=== PATIENT | female | born 1970 | race Caucasian/White ===

== ENCOUNTER 2016-04-21 09:16 | Emergency (ER) | payer BC ==
[~2016-04-21] VITALS: Ht 167.6 cm; Wt 80.2 kg
[~2016-04-21 09:16] MED LIST: ALEN70TA2 PO; ARM1 PO; CALCTAB5 PO; CHOL100027 PO; MULT-506 PO; ZLDI SQ
[2016-04-21 09:18] VITALS: TEMP 36.6; Ht 167.6 cm; Wt 80.2 kg
[2016-04-21] MEDS ORDERED: SODIUM CHLORIDE 0.9% 1000ML 1,000 ML IV STA (09:33)
[2016-04-21] MEDS ORDERED: ONDANSETRON INJ 2 MG/ML 2 ML VIAL IV STA (09:33)
[2016-04-21] MEDS ORDERED: KETOROLAC TROMETHAMINE 30 MG/ML VIAL IV STA (09:33)
--- NOTE | 2016-04-21 09:41 | EMERGENCY ROOM VISIT NOTE ---
History Report prepared by Joy: Rosario Leger Under the Supervision of: Dr. David Marie D.O. First contact with patient: 09:28 Chief Complaint: BACK PAIN Stated Complaint: SEVERE BACK PAIN History of Present Illness The patient is a 45 year old female who presents to the Emergency Room with complaints of persistent left, upper back pain that began Wednesday. She currently rates her discomfort as an 8/10 in severity. The patient states that on Wednesday she lifted a grocery bag out of her cart and injured her back. She states that the pain is localized to one area, and denies it radiating to any other part of her body or any shooting pain. The patient denies any numbness, tingling, or weakness in her legs. She denies any previous back problems and denies seeing anyone for her symptoms. The patient denies any abdominal pain, groin pain, groin numbness, or trouble urinating. She states that she tried taking Aleve and Advil without relief of her symptoms, noting that her last dose was last evening. The patient states that she has a history of breast cancer in 2009 and denies the cancer spreading to any other parts of her body. She states that she had a mastectomy. The patient states that she is premenopausal and denies any history of a hysterectomy. She denies any tobacco use, but notes that she is an occasional drinker. Source of History: patient Onset: Wednesday Position: back (left upper) Symptom Intensity: 8/10 Timing: other (persistent) Associated Symptoms: No abdominal pain, No numbness, No weakness Review of Systems See HPI for pertinent positives & negatives. A total of 10 systems reviewed and were otherwise negative. Past Medical & Surgical Medical Problems: (1) Breast cancer Family History No pertinent family history stated. Social History Smoking Status: Never Smoker Marital Status: Housing Status: lives with significant other Occupation Status: employed Current/Historical Medications Scheduled Alendronate Sodium (Fosamax), 70 MG PO WK Anastrozole (Anastrozole), 1 MG PO DAILY Calcium Carbonate (Calcium), 600 MG PO BID Cholecalciferol (Vitamin D 1000 Unit), 2,000 INTER.UNIT PO DAILY Goserelin Acetate (Zoladex), 10.8 MG SQ Q90D Multivitamin (Multivitamin), 1 TAB PO DAILY Scheduled PRN Oxycodone Immediate Rel Tab (Roxicodone Ir), 1-2 TAB PO Q4H PRN for Severe Pain Allergies Coded Allergies: No Known Allergies (Verified , 04/21/16) Physical Exam Vital Signs Date Time Temp Pulse Resp B/P Pulse Ox O2 Delivery O2 Flow Rate FiO2 04/21/16 12:02 52 16 114/69 97 Room Air 04/21/16 11:19 52 18 131/61 95 Room Air 04/21/16 10:03 58 20 138/69 96 Room Air 04/21/16 09:18 36.6 78 20 115/70 99 Room Air Physical Exam GENERAL: Patient is awake, alert, very anxious appearing, appears to be uncomfortable and in significant pain. EYES: The conjunctivae are clear. The pupils are round and reactive. EARS, NOSE, MOUTH AND THROAT: The nose is without any evidence of any deformity. Mucous membranes are moist tongue is midline NECK: The neck is nontender and supple. RESPIRATORY: Normal respiratory effort is noted there is no evidence of wheezing rhonchi or rales CARDIOVASCULAR: Regular rate and rhythm noted there no murmurs rubs or gallops normal S1 normal S2 GASTROINTESTINAL: The abdomen is soft. Bowel sounds are present in all quadrants. Abdomen is nontender BACK: No midline tenderness, but very significant perivertebral tenderness, especially in the lower thoracic and upper lumbar spine. Range of motion is limited secondary to pain. MUSCULOSKELETAL/EXTREMITIES: There is no evidence of gross deformity full range of motion is noted in the hips and shoulders SKIN: There is no obvious evidence of any rash. There are no petechiae, pallor or cyanosis noted. NEUROLOGIC: Patient is awake alert and oriented x3 strength is symmetric patellar reflexes are 2+ bilaterally. Achilles tendon reflexes 1+ bilaterally and great toe raises are symmetric. Medical Decision & Procedures ER Provider Diagnostic Interpretation: X-ray results as stated below per interpretation by me and the radiologist. THORACIC SPINE 3 VIEWS HISTORY: Back pain left back pain COMPARISON: None. FINDINGS: There is no fracture. Mild that should scoliosis. Mild degenerative disc changes throughout. No acute compression deformity. IMPRESSION: Mild scoliosis. Mild degenerative intervertebral disc change. Electronically signed by: Karlo Caballero M.D. 04/21/2016 10:53 AM Dictated Date/Time: 04/21/2016 10:49 AM LUMBAR SPINE 5 VIEWS HISTORY: Pain left back pain COMPARISON: None. FINDINGS: There is no fracture. Moderate degenerative disc change. Degenerative change of vertebral endplates. No evidence for an acute compression deformity. IMPRESSION: Moderate degenerative change. Electronically signed by: Karlo Caballero M.D. 04/21/2016 10:49 AM Dictated Date/Time: 04/21/2016 10:48 AM Laboratory Results 04/21/16 09:55 Red Blood Count 4.63, Mean Corpuscular Volume 87.3, Mean Corpuscular Hemoglobin 29.4, Mean Corpuscular Hemoglobin Concent 33.7, Mean Platelet Volume 10.3, Neutrophils (%) (Auto) 59.3, Lymphocytes (%) (Auto) 32.5, Monocytes (%) (Auto) 4.1, Eosinophils (%) (Auto) 3.4, Basophils (%) (Auto) 0.5, Neutrophils # (Auto) 3.37, Lymphocytes # (Auto) 1.84, Monocytes # (Auto) 0.23, Eosinophils # (Auto) 0.19, Basophils # (Auto) 0.03 04/21/16 09:55 Test 04/21/16 09:55 04/21/16 11:18 White Blood Count 5.67 K/uL (4.8-10.8) Red Blood Count 4.63 M/uL (4.2-5.4) Hemoglobin 13.6 g/dL (12.0-16.0) Hematocrit 40.4 % (37-47) Mean Corpuscular Volume 87.3 fL (80-100) Mean Corpuscular Hemoglobin 29.4 pg (25-34) Mean Corpuscular Hemoglobin Concent 33.7 g/dl (32-36) Platelet Count 300 K/uL (130-400) Mean Platelet Volume 10.3 fL (7.4-10.4) Neutrophils (%) (Auto) 59.3 % Lymphocytes (%) (Auto) 32.5 % Monocytes (%) (Auto) 4.1 % Eosinophils (%) (Auto) 3.4 % Basophils (%) (Auto) 0.5 % Neutrophils # (Auto) 3.37 K/uL (1.4-6.5) Lymphocytes # (Auto) 1.84 K/uL (1.2-3.4) Monocytes # (Auto) 0.23 K/uL (0.11-0.59) Eosinophils # (Auto) 0.19 K/uL (0-0.5) Basophils # (Auto) 0.03 K/uL (0-0.2) RDW Standard Deviation 43.3 fL (36.4-46.3) RDW Coefficient of Variation 13.6 % (11.5-14.5) Immature Granulocyte % (Auto) 0.2 % Immature Granulocyte # (Auto) 0.01 K/uL (0.00-0.02) Anion Gap 9.0 mmol/L (3-11) Est Creatinine Clear Calc Drug Dose 113.7 ml/min Estimated GFR () 122.8 Estimated GFR (Non- 105.9 BUN/Creatinine Ratio 20.3 (10-20) Calcium Level 9.2 mg/dl (8.5-10.1) Total Bilirubin 0.7 mg/dl (0.2-1) Direct Bilirubin 0.1 mg/dl (0-0.2) Aspartate Amino Transf (AST/SGOT) 12 U/L (15-37) Alanine Aminotransferase (ALT/SGPT) 25 U/L (12-78) Alkaline Phosphatase 88 U/L (45-117) Total Protein 7.5 gm/dl (6.4-8.2) Albumin 3.6 gm/dl (3.4-5.0) Lipase 98 U/L (73-393) Human Chorionic Gonadotropin, Qual NEG (NEG) Urine Color YELLOW Urine Appearance CLEAR (CLEAR) Urine pH 7.0 (4.5-7.5) Urine Specific [place] 1.004 (1.000-1.030) Urine Protein NEG (NEG) Urine Glucose (UA) NEG (NEG) Urine Ketones NEG (NEG) Urine Occult Blood NEG (NEG) Urine Nitrite NEG (NEG) Urine Bilirubin NEG (NEG) Urine Urobilinogen NEG (NEG) Urine Leukocyte Esterase MODERATE (NEG) Urine WBC (Auto) 1-5 /hpf (0-5) Urine RBC (Auto) 0-4 /hpf (0-4) Urine Hyaline Casts (Auto) 0 /lpf (0-5) Urine Epithelial Cells (Auto) 5-10 /lpf (0-5) Urine Bacteria (Auto) NEG (NEG) Laboratory results per my review. Medications Administered Medications (Trade) Dose Ordered Sig/Raj Route Start Time Stop Time Status Last Admin Dose Admin Ketorolac Tromethamine 30 mg 30 mg NOW STAT IV 04/21/16 09:33 04/21/16 09:36 DC 04/21/16 09:58 30 MG Sodium Chloride (Nss 1000ml) 1,000 ml @ 999 mls/hr Q1H1M STAT IV 04/21/16 09:33 04/21/16 10:33 DC 04/21/16 09:56 999 MLS/HR Ondansetron HCl (Zofran Inj) 4 mg NOW STAT IV 04/21/16 09:33 04/21/16 09:36 DC 04/21/16 09:57 4 MG Morphine Sulfate (MoRPHine SULFATE INJ) 4 mg Q15M PRN IV 04/21/16 09:45 04/21/16 12:25 DC 04/21/16 11:24 4 MG ED Course 0930: The patient was evaluated in room C1B. A complete history and physical examination were performed. 0933: Ordered Zofran Inj 4 mg IV, Sodium Chloride 1000 ml @ 999 mls/hr IV, Toradol Inj 30 mg IV. 0945: Ordered Morphine Sulfate 4 mg IV. 1012: I reevaluated the patient and she was at x-ray. 1115: I reevaluated the patient and she is doing well. 1156: I reevaluated the patient and she is resting comfortably. I discussed the exam findings with her and I discussed the treatment plan. She verbalized complete understanding and agreement. She is ready to go home. Medical Decision Differential diagnosis: Etiologies such as musculoskeletal, disc herniation, fracture, aortic disease, metastatic disease, cord compression, discitis, infection, renal colic, gastrointestinal, acute exacerbation of chronic back pain, sciatica, cauda equina, as well as others were entertained. Nursing notes reviewed. The patient is a 45-year-old female who presented to the emergency department for an evaluation of left-sided back pain. The back pain appeared to be musculoskeletal in nature. It was reproducible. She states it was worsened after doing some heavy lifting. The patient did not have any focal neurologic deficit. She does have a history of breast cancer in the past which to her knowledge has not had any metastasis. The patient's x-rays did not reveal any acute bony abnormality but did show some degenerative changes. She was treated with IV fluids IV pain medicine IV antiemetics. On subsequent reevaluation she was feeling much better. She was encouraged to rest and avoid any strenuous activity. She was also encouraged to call her family doctor to schedule a follow -up appointment. I also recommended that she discuss the possibility that she may require an MRI of her back if symptoms do not improve or if other symptoms develop which could be radicular in nature. Otherwise she was encouraged to return the emergency Department immediately if symptoms change worsen or the need arises. Impression Primary Impression: Low back pain Scribe Attestation The scribe's documentation has been prepared under my direction and personally reviewed by me in its entirety. I confirm that the note above accurately reflects all work, treatment, procedures, and medical decision making performed by me. Departure Information Dispostion Home / Self-Care Prescriptions Oxycodone Immediate Rel Tab (ROXICODONE IR) 5 Mg Tab 1-2 TAB PO Q4H Y for Severe Pain, #24 TAB Prov: David Marie, DO 04/21/16 Referrals Tamar Faust,D.OJustin (PCP) Forms HOME CARE DOCUMENTATION FORM, IMPORTANT VISIT INFORMATION, Work Instructions Patient Instructions Back Pain Relieve, Low Back Pain Self Care, My [facility] Additional Instructions Call your family to schedule a follow-up appointment. Rest and avoid any strenuous activity. Discussed the possibility with your family the may require other studies such as an MRI the back to further evaluate the cause of your pain. Continue using Motrin and Tylenol as directed for mild pain. Problem Qualifiers Primary Impression: Low back pain Chronicity: acute Back pain laterality: left Sciatica presence: without sciatica Qualified Codes: M54.5 - Low back pain
[2016-04-21] MEDS ORDERED: MoRPHine SULFATE 4 MG/ML 1 ML CARP\\VIAL IV PRN (09:45)
[2016-04-21] MEDS ORDERED: ARM1 PO (09:54)
[2016-04-21] MEDS ORDERED: CALC-393 PO (09:54)
[2016-04-21 10:02] LABS: BASO % 0.5 %; BASO ABS # 0.03 K/uL (0-0.2); COMPLETE YES; EOS % 3.4 %; HEMATOCRIT 40.4 % (37-47); IG% 0.2 %; LYMPH % 32.5 %; LYMPH ABS # 1.84 K/uL (1.2-3.4); MEAN CELL VOLUME 87.3 fL (80-100); MEAN CORPUSCULAR HEMOGLOBIN 29.4 pg (25-34); MEAN CORPUSCULAR HGB CONC 33.7 g/dl (32-36); MEAN PLATELET VOLUME 10.3 fL (7.4-10.4); MONO % 4.1 %; NEUT % 59.3 %; PLATELET COUNT 300 K/uL (130-400); RED BLOOD COUNT 4.63 M/uL (4.2-5.4); WHITE BLOOD COUNT 5.67 K/uL (4.8-10.8)
[2016-04-21 10:19] LABS: BUN/CREATININE RATIO 20.3 (10-20); CALCIUM 9.2 mg/dl (8.5-10.1); CREATININE 0.66 mg/dl (0.60-1.20); POTASSIUM 4.3 mmol/L (3.5-5.1)
[2016-04-21 10:33] LABS: PREG INTERNAL NEGATIVE QC NEG CLEAR BACKGROUND; PREG INTERNAL POSITIVE QC POS CONTROL LINE
--- NOTE | 2016-04-21 10:50 | DIAGNOSTIC IMAGING REPORT ---
LUMBAR SPINE 5 VIEWS HISTORY: Pain left back pain COMPARISON: None. FINDINGS: There is no fracture. Moderate degenerative disc change. Degenerative change of vertebral endplates. No evidence for an acute compression deformity. IMPRESSION: Moderate degenerative change. Electronically signed by: Karlo Caballero M.D. 04/21/2016 10:49 AM Dictated Date/Time: 04/21/2016 10:48 AM
--- NOTE | 2016-04-21 10:54 | DIAGNOSTIC IMAGING REPORT ---
THORACIC SPINE 3 VIEWS HISTORY: Back pain left back pain COMPARISON: None. FINDINGS: There is no fracture. Mild that should scoliosis. Mild degenerative disc changes throughout. No acute compression deformity. IMPRESSION: Mild scoliosis. Mild degenerative intervertebral disc change. Electronically signed by: Karlo Caballero M.D. 04/21/2016 10:53 AM Dictated Date/Time: 04/21/2016 10:49 AM
[2016-04-21 11:45] LABS: MANUAL MICROSCOPIC REQUIRED? NO; REVIEW REQ? NO; URINE APPEARANCE CLEAR (CLEAR); URINE BILIRUBIN NEG (NEG); URINE COLOR YELLOW; URINE NITRITE NEG (NEG); URINE SPECIFIC GRAVITY 1.004 (1.000-1.030); UROBILINOGEN NEG (NEG)
[2016-04-21] MEDS ORDERED: OXYC1TAB3 PO (11:53)
[2016-04-21 12:02] VITALS: BP 114/69; PULSE 52; O2SAT 97
== END 2016-04-21 12:16 | disposition home or self-care (01) ==
LOC: C.EDB 09:18 → C.EDC 12:16
DX: M54.5 Low back pain (principal); Z85.3 Personal history of malignant neoplasm of breast; Z79.899 Other long term (current) drug therapy

== ENCOUNTER 2025-01-19 00:03 | Observation (INO) ==
[2025-01-19] MEDS: FAMOTIDINE 20MG IV PUSH 20 MG/5 ML SYR IV STA (00:43)
[2025-01-19] MEDS: ONDANSETRON INJ 2 MG/ML 2 ML VIAL IV STA (00:43)
[2025-01-19] MEDS: SODIUM CHLORIDE 0.9% 1,000 ML IV SCH (00:43)
[2025-01-19 00:52] LABS: Hematocrit (blood only) 43.2 % (37.0-47.0); Hemoglobin 14.2 g/dL (12.0-16.0); Immature Granulocytes # (auto) 0.02 K/uL (0.01-0.20); Immature Granulocytes % (auto) 0.2 %; Mean Corpuscular Hemoglobin 28.3 pg (25.0-34.0); Mean Corpuscular Volume 86.2 fL (80.0-100.0); Platelet Count 344 K/uL (130-400); RDW Standard Deviation 42.2 fL (36.4-46.3); Red Blood Count 5.01 M/uL (4.20-5.40); White Blood Count 9.04 K/ul (4.8-10.8)
[2025-01-19 01:10] LABS: Alanine Aminotransferase 21.0 U/L (7-52); Albumin Globulin Ratio 1.2 (0.9-2); Albumin Level 4.1 gm/dl (3.4-5.0); Alkaline Phosphatase 83.0 U/L (34-104); Anion Gap 6.0 (3-11); Bilirubin,Total 0.5 mg/dl (0.2-1.0); Blood Urea Nitrogen 19.0 mg/dl (6-23); Calcium 9.8 mg/dl (8.6-10.3); Carbon Dioxide 29.0 mmol/L (21-32); Chloride 103.0 mmol/L (98-107); Creatinine Clr Calc Pharmacy 85.8 ml/min; Globulin 3.3 gm/dl (2.5-4.0); Glucose 128.0 mg/dl (70-99(Fasting)); Magnesium 2.1 mg/dl (1.7-2.4); Potassium 3.8 mmol/L (3.5-5.1); Sodium 138.0 mmol/L (136-145); Total Protein 7.4 gm/dl (6.0-8.3)
[2025-01-19] MEDS ORDERED: OPTIRAY 320 100ml IV ONE (01:10)
[2025-01-19] MEDS: MoRPHine SULFATE 4 MG/ML 1 ML CARP\\VIAL IV STA (01:10)
[2025-01-19] MEDS: OPTIRAY 320 125ml IV ONE (01:11)
[2025-01-19 01:15] LABS: Pregnancy Test, Serum Negative (Negative)
--- NOTE | 2025-01-19 01:19 | Emergency Department Note ---
History of Present Illness General Chief complaint: Abdominal Pain Stated complaint: ABD PAIN IN UPPER AREA Time Seen by Provider: 01/19/25 00:19 History of Present Illness Maximum Pain Intensity: 6 This 54-year-old female who has been underneath a lot of stress lately presents to the ER complain of severe epigastric pain that radiates bilaterally who threw up twice in the second time seem like blood. Patient states she is healthy with no real active medical problems. She does have a distant history of breast cancer. Patient denies chest pain, dyspnea, fever, chills, flulike illness. No black or blood in the stool. No heavy alcohol use. Home Medications Medication Instructions Recorded Confirmed Type alendronate 70 mg tablet 70 mg PO UD 01/19/25 01/19/25 History Allergies Allergy/AdvReac Type Severity Reaction Status Date / Time No Known Allergies Allergy Verified 06/01/24 15:48 Past Med/Surg History Problem List (Updated 01/19/25 @ 02:29 by Tuyet Yanes PA-C) Mesenteric panniculitis (Acute) Hematemesis (Acute) Surgical History (Updated 04/26/23 @ 12:35 by Nisreen Holbrook MD) Hx of breast reconstruction S/P mastectomy, bilateral Family History (Updated 04/26/23 @ 08:53 by Nisreen Holbrook MD) Grandmother (Maternal) No problems noted. Grandmother (Paternal) Breast cancer Colorectal cancer Denies family history of Ovarian cancer Uterine cancer Social History (Updated 04/09/23 @ 15:32 by Yessi Cedeno LPN) Smoking Status: Never smoker Preferred Language: Mongolian Feels Safe at Home: Yes Review of Systems A total of 10 systems reviewed and were otherwise negative Physical Exam Vital Signs Vital Signs - 24 hr 01/19/25 00:13 01/19/25 00:32 01/19/25 00:42 Temperature 36.5 C Temperature Source Oral Pulse Rate 60 49 L Respiratory Rate 20 Respiratory Effort / Characteristics Non-Labored Spontaneous Respiratory Depth Normal Blood Pressure 139/81 Blood Pressure Mean 100 Pulse Oximetry 99 98 Oxygen Delivery Method Room Air Room Air Sepsis Recent Fever Within 48 Hours No Sepsis New/Unexplained Change in Mental Status No Sepsis Action Taken by Nursing No Action Required 01/19/25 00:45 01/19/25 01:12 Temperature Temperature Source Pulse Rate 49 L 62 Respiratory Rate 15 24 Respiratory Effort / Characteristics Respiratory Depth Blood Pressure 174/71 H 169/116 H Blood Pressure Mean 105 133 Pulse Oximetry 98 99 Oxygen Delivery Method Room Air Room Air Sepsis Recent Fever Within 48 Hours Sepsis New/Unexplained Change in Mental Status Sepsis Action Taken by Nursing VITALS: Vitals are noted on the nurse's note and reviewed by myself. Vital signs stable. GENERAL: White female who appears in pain who vomited in front me that appears to be blood that was Gastroccult of and is positive, in acute distress SKIN: Capillary reflex less than 2 seconds. HEENT: Normocephalic. PERRLA. EOMI. Nares patent. Mucous membranes moist. Neck is supple without nuchal rigidity. HEART: Regular rate and rhythm LUNGS: Clear to auscultation bilaterally without wheezes, rales or rhonchi. No retractions or accessory muscle use. ABDOMEN: Positive bowel sounds x 4. Normal tympanic percussion. Soft, tender to palpation epigastric region, without masses or organomegaly. Queen sign negative. No guarding or rebound tenderness. no CVA tenderness MUSCULOSKELETAL: No gross musculoskeletal defects. NEURO: Patient was alert and oriented to person place and time. No focal neurological deficits. Course Administered Medications Discontinued Medications Sodium Chloride (Nss) 1,000 mls @ 999 mls/hr IV .Q1H1M SURYA Stop: 01/19/25 01:45 Last Infusion: 01/19/25 01:57 Dose: Infused Documented By: Admin: 01/19/25 00:43 Dose: 999 mls/hr Documented By: MAYITO Famotidine (Pepcid 20mg Iv Push) 20 mg in 5 mls @ 2.5 mls/min IV NOW STA Stop: 01/19/25 00:32 Last Admin: 01/19/25 00:43 Dose: 2.5 mls/min Documented By: MAYITO Pantoprazole Sodium 80 mg/ (Dextrose) 120 mls @ 480 mls/hr IV ONE STA Stop: 01/19/25 00:45 Last Infusion: 01/19/25 01:00 Dose: Infused Documented By: Admin: 01/19/25 00:43 Dose: 480 mls/hr Documented By: MAYITO Ioversol (Optiray 320 125ml) 125 ml IV ONCE ONE Stop: 01/19/25 01:12 Last Admin: 01/19/25 01:11 Dose: 118 ml Documented By: MOISE Morphine Sulfate (Morphine Sulfate 4 Mg/Ml 1 Ml Carp\Vial) 4 mg IV NOW STA Stop: 01/19/25 00:56 Last Admin: 01/19/25 01:10 Dose: 4 mg Documented By: NANCY Ondansetron HCl (Ondansetron Inj 2 Mg/Ml 2 Ml Vial) 4 mg IV NOW STA Stop: 01/19/25 00:32 Last Admin: 01/19/25 00:43 Dose: 4 mg Documented By: MAYITO Medical Decision Making Medical Records Attestation: I reviewed the patient's medical records. Home Medications Current Medication List: was personally reviewed by me Laboratory Data Attestation: I reviewed the patient's lab results. 01/19/25 00:30 01/19/25 00:30 Lab Results 01/19/25 01/19/25 01/19/25 Range/Units 00:28 00:30 00:36 WBC 9.04 (4.8-10.8) K/ul RBC 5.01 (4.20-5.40) M/uL Hgb 14.2 (12.0-16.0) g/dL POC Hgb 14.6 (12.0-16.0) g/dl Hct 43.2 (37.0-47.0) % POC Hct 43 (37-47) % MCV 86.2 (80.0-100.0) fL MCH 28.3 (25.0-34.0) pg MCHC 32.9 (32.0-36.0) g/dL RDW Std Deviation 42.2 (36.4-46.3) fL RDW Coeff of Gladys 13.5 (11.5-14.5) % Plt Count 344 (130-400) K/uL MPV 10.2 (9.4-12.4) fL Immature Gran % (Auto) 0.2 % Neut % (Auto) 59.3 % Lymph % (Auto) 31.0 % Chaves % (Auto) 5.8 % Eos % (Auto) 3.1 % Baso % (Auto) 0.6 % Neut # (Auto) 5.37 (1.40-6.50) K/uL Lymph # (Auto) 2.80 (1.20-3.40) K/uL Chaves # (Auto) 0.52 (0.11-0.59) K/uL Eos # (Auto) 0.28 (0.00-0.50) K/uL Baso # (Auto) 0.05 (0.00-0.20) K/uL Immature Gran # (Auto) 0.02 (0.01-0.20) K/uL PT 10.7 (9.0-12.0) Seconds INR 1.0 (0.9-1.1) APTT 26 (21-31) Seconds PTT Ratio 1.0 POC Sodium 140 (135-144) mmol/L Sodium 138 (136-145) mmol/L POC Potassium 3.8 (3.3-5.0) mmol/L Potassium 3.8 (3.5-5.1) mmol/L POC Chloride 101 (101-112) mmol/L Chloride 103 (98-107) mmol/L Carbon Dioxide 29 (21-32) mmol/L POC Total CO2 28 (24-31) mmol/L Anion Gap 6 (3-11) POC Anion Gap 16.0 (16-25) mmol/L POC BUN 20 H (7-18) mg/dl BUN 19 (6-23) mg/dl Creatinine 0.80 (0.6-1.2) mg/dl POC Creatinine 0.9 (0.6-1.3) mg/dl Est Cr Clr Drug Dosing 85.8 ml/min eGFR 86.96 BUN/Creatinine Ratio 23.8 H (10-20) Glucose 128 H (70-99(Fasting)) mg/dl POC Glucose (other) 125 H (70-99) mg/dl Calcium 9.8 (8.6-10.3) mg/dl POC Ioniz Calcium Brian 1.20 (1.12-1.32) mmol/l Magnesium 2.1 (1.7-2.4) mg/dl Total Bilirubin 0.5 (0.2-1.0) mg/dl AST 17 (13-39) U/L ALT 21 (7-52) U/L Alkaline Phosphatase 83 (34-104) U/L Troponin I High Sens 2.7 (0-14) pg/ml Total Protein 7.4 (6.0-8.3) gm/dl Albumin 4.1 (3.4-5.0) gm/dl Globulin 3.3 (2.5-4.0) gm/dl Albumin/Globulin Ratio 1.2 (0.9-2) HCG, Qual Negative (Negative) Blood Type O Positive Antibody Screen NEGATIVE Imaging Data Attestation: I personally reviewed and interpreted this imaging study as follows: Radiologist's Impression: Abdomen/Pelvis CTA 01/19/25 00:31 EXAM: CT angio abdomen pelvis w con CLINICAL HISTORY: severe epi pain, hematemesis TECHNIQUE: Contrast enhanced thin slice CT angiography scan of the abdominal aorta was performed with intravenous contrast. Angiographic images were processed, 3D MIP images were acquired for interpretation. Contiguous axial images were obtained. Reformatted coronal and sagittal images were also reviewed. If IV contrast material had not been administered, the likelihood of detecting abnormalities relevant to the patient's condition would have been substantially decreased. CT scan was performed according to ALARA (as low as reasonably achievable). COMPARISON: None. FINDINGS: Abdominal aorta is normal in course, calibre and opacification. Origin of coeliac artery, superior mesenteric artery , bilateral main renal and lumbar arteries are normal with no hemodynamically significant ostial stenosis noted. Bilateral common, external and internal iliac arteries are normal in course, caliber and opacification. Solid abdominal organs including liver, spleen, pancreas and bilateral kidneys reveal no significant abnormality. Sliding hiatus hernia. Multiple lucent calculi noted involving gallbladder without cholecystitis. Multiple small uncomplicated sigmoid colonic diverticulosis No evidence of ascites. Mesenteric panniculitis in form of root of mesentery - mesenteric fat stranding and few reaactive lymphnodes. IMPRESSION: Uncomplicated cholelithiasis. Multiple small uncomplicated sigmoid colonic diverticulosis Sliding hiatus hernia noted. Abdominal aorta is normal in course, calibre and opacification. Origin of coeliac artery, superior mesenteric artery , bilateral main renal and lumbar arteries are normal with no hemodynamically significant ostial stenosis noted. Mesenteric panniculitis in form of mesenteric fat stranding and few reaactive lymphnodes. Electronically signed by Aubrey Tuttle 01-19-2025 01:50 AM Chest X-Ray 01/19/25 00:31 EXAM: XR chest 1V portable CLINICAL HISTORY: n/v. TECHNIQUE: An X-ray image of the chest is obtained in AP projection. COMPARISON: 01/18/2025 CT. FINDINGS: Pulmonary Parenchyma: The right lower lung lobe nodule is better seen on the lower cut of the CT angiography of the abdominal vessels. Subtle coarse pulmonary interstitium with bilateral basal atelectatic band. No evidence of consolidation, collapse, or focal opacities. No evidence of pleural effusion or pleural thickening. Heart and Mediastinum: Heart size and shape are normal. No mediastinal widening or masses. No hilar or mediastinal lymphadenopathy. Bony Thorax: Bony thorax appears intact without fractures or deformities. ECG leads. Soft Tissues: Soft tissues overlying the chest wall are unremarkable. left and to a lesser extent right few metallic clips, likely of metallic clips of an old intervention versus soft tissue calcification. IMPRESSION: 1. Subtle coarse pulmonary interstitium with a few bilateral basal atelectatic bands, stable. 2. The right lower lung lobe nodule is better seen on the lower cut of the CT angiography of the abdominal vessels. Electronically signed by Irvin Menjivar 01-19-2025 02:21 AM MDM Narrative Prior records/ancillary studies reviewed. Triage Nursing notes reviewed. Additional history obtained from the family. The patient's history was concerning for possible gastrointestinal bleeding. Differential diagnosis: Etiologies such as diverticulosis, AVM, coagulopathy, colitis, inflammatory bowel disease, malignancy, Kaye-Conley tear, esophagitis, peptic ulcer disease, variceal bleed, gastritis, epistaxis, fissure, hemorrhoids, as well as others were entertained. Physical exam: As above. The patients vital signs were stable. ER treatment provided: An order was placed for continuous cardiac monitoring. The monitor shows a rate of 60-100 with a sinus rhythm per my interpretation. Limited Point of Care FAST Ultrasound performed by me: Indication: Rule out perforation Findings: Limited cardiac ultrasonography via subxiphoid and parasternal long view showed cardiac wall motion activity, no pericardial fluid, no tamponade. Limited chest ultrasound revealed bilateral lung sliding. Limited abdominal ultrasound revealed no free fluid within Brower's pouch, splenorenal space, or the pouch of Guillermo. Impression: Negative FAST exam. Protonix, Pepcid, Zofran and morphine and IV fluids were ordered. I-STAT was ordered patient was sent down for CAT scan Patient was consented to blood if warranted. Blood consent was placed on the chart. On reassessment the patient felt better. Diagnostics interpreted by me: ECG: Ordered for GI bleed EKG: Normal sinus, normal intervals, no acute ST-T wave changes. Rate of 53. Impression sinus bradycardia independent interpreted myself The labs Independently Interpreted by myself revealed Stable H&H, no worrisome leukocytosis, glucose 128. Negative hCG. Imaging studies: Imaging was reviewed and read by radiology Consultation: A consultation was placed with the hospitalist. The case was discussed and diagnostics were reviewed. The patient was evaluated in the ER for further treatment. This appears to be consistent with hematemesis with mesenteric panniculitis. Patient has been under more stress lately. Most likely she has a stomach ulcer. No active bleeding on CAT scan. Patient was medicated as above. She was started on a PPI and Pepcid. She was given antinausea medicine and pain medicine. She was typed and crossmatch for blood if warranted. She was consented to blood if warranted. She was reassessed multiple times and improved. She was feeling better. Medicine was consulted case discussed. She will be evaluated for admission.. By the evaluation outlined above emergent etiologies such as esophageal perforation, variceal bleed, coagulopathy, epistaxis, malignancy, inflammatory bowel disease, as well as others were deemed relatively unlikely. The pt informed about the findings as listed above. All questions were answered and pleased with the treatment. The chart was completed utilizing [employer] Speech voice recognition software. Grammatical errors, random word insertions, pronoun errors, and incomplete sentences are an occassional consequence of this system due to software limitations, ambient noise, and hardware issues. Any formal questions or concerns about the content, text, or information contained within the body of this dictation should be directly addressed to the physician mobile unit assistant for clarification. Impression & Plan Hematemesis, Mesenteric panniculitis Discharge Plan Visit Data Chief Complaint: Abdominal Pain Stated Complaint: ABD PAIN IN UPPER AREA ED Provider: Marika Gama ED Midlevel Provider: Tuyet Yanes Discharge Problem: Hematemesis, Mesenteric panniculitis Patient Disposition: Admitted As Inpatient Condition: Fair Forms Stand Alone Forms: Home Team Therapy Prescriptions Prescriptions: No Action alendronate 70 mg tablet 70 mg PO UD Referrals Referrals: Tamar Faust DO [Primary Care Provider] - Discharge Problem: Hematemesis Qualifiers: Nausea presence: with nausea Qualified Code(s): K92.0 - Hematemesis
[2025-01-19 01:26] LABS: INR 1.0 (0.9-1.1); Partial Thromboplastin Time 26 Seconds (21-31); Prothrombin Time 10.7 Seconds (9.0-12.0)
--- NOTE | 2025-01-19 01:50 | CT Scan Report ---
EXAM: CT angio abdomen pelvis w con CLINICAL HISTORY: severe epi pain, hematemesis TECHNIQUE: Contrast enhanced thin slice CT angiography scan of the abdominal aorta was performed with intravenous contrast. Angiographic images were processed, 3D MIP images were acquired for interpretation. Contiguous axial images were obtained. Reformatted coronal and sagittal images were also reviewed. If IV contrast material had not been administered, the likelihood of detecting abnormalities relevant to the patient's condition would have been substantially decreased. CT scan was performed according to ALARA (as low as reasonably achievable). COMPARISON: None. FINDINGS: Abdominal aorta is normal in course, calibre and opacification. Origin of coeliac artery, superior mesenteric artery , bilateral main renal and lumbar arteries are normal with no hemodynamically significant ostial stenosis noted. Bilateral common, external and internal iliac arteries are normal in course, caliber and opacification. Solid abdominal organs including liver, spleen, pancreas and bilateral kidneys reveal no significant abnormality. Sliding hiatus hernia. Multiple lucent calculi noted involving gallbladder without cholecystitis. Multiple small uncomplicated sigmoid colonic diverticulosis No evidence of ascites. Mesenteric panniculitis in form of root of mesentery - mesenteric fat stranding and few reaactive lymphnodes. IMPRESSION: Uncomplicated cholelithiasis. Multiple small uncomplicated sigmoid colonic diverticulosis Sliding hiatus hernia noted. Abdominal aorta is normal in course, calibre and opacification. Origin of coeliac artery, superior mesenteric artery , bilateral main renal and lumbar arteries are normal with no hemodynamically significant ostial stenosis noted. Mesenteric panniculitis in form of mesenteric fat stranding and few reaactive lymphnodes. Electronically signed by Aubrey Tuttle 01-19-2025 01:50 AM
--- NOTE | 2025-01-19 02:22 | XRay Report ---
EXAM: XR chest 1V portable CLINICAL HISTORY: n/v. TECHNIQUE: An X-ray image of the chest is obtained in AP projection. COMPARISON: 01/18/2025 CT. FINDINGS: Pulmonary Parenchyma: The right lower lung lobe nodule is better seen on the lower cut of the CT angiography of the abdominal vessels. Subtle coarse pulmonary interstitium with bilateral basal atelectatic band. No evidence of consolidation, collapse, or focal opacities. No evidence of pleural effusion or pleural thickening. Heart and Mediastinum: Heart size and shape are normal. No mediastinal widening or masses. No hilar or mediastinal lymphadenopathy. Bony Thorax: Bony thorax appears intact without fractures or deformities. ECG leads. Soft Tissues: Soft tissues overlying the chest wall are unremarkable. left and to a lesser extent right few metallic clips, likely of metallic clips of an old intervention versus soft tissue calcification. IMPRESSION: 1. Subtle coarse pulmonary interstitium with a few bilateral basal atelectatic bands, stable. 2. The right lower lung lobe nodule is better seen on the lower cut of the CT angiography of the abdominal vessels. Electronically signed by Irvin Menjivar 01-19-2025 02:21 AM
--- NOTE | 2025-01-19 02:48 | History & Physical Report ---
Date of Service January 19, 2025 Assessment & Plan (1) Abdominal pain: (2) Mesenteric panniculitis: Plan 54-year-old female PMHx breast cancer in 2009 presenting for abdominal pain over the past few weeks with vomiting the day of arrival. Her evaluation is overall unremarkable with slightly increased BUN/creatinine versus 23.8 and glucose 128. CTA A/P revealing mesenteric panniculitis but no acute findings otherwise. #Abdominal pain/Mesenteric panniculitis/R/o GI bleed Abdominal pain for 3-4 weeks, vomiting day of arrival, coffee-ground emesis x 1. Increased stress surrounding her job around the same time her abdominal pain started. No NSAIDs, no prior episodes. Concerning for acid reflux with ? acute bleeding, however stable H/H, normal BUN. Panniculitis possibly secondary to vomiting, ? recent viral illness, should continue to monitor as appropriate. Admission for further management of pain and to evaluate source of symptoms. - CBC stable H&H and overall WNL; PT WNL; CMP normal BUN, BUN/creatinine ratio 20.8, glucose 128 - H/H, BMP am - Occult blood test (+) in ED - CTA A/P mesenteric panniculitis otherwise chronic and stable findings (see report) - NPO - IVF LR @ 80 mL/hr x 1L - Acetaminophen prn fever/pain, morphine prn severe pain - Pantoprazole IV BID + Famotidine IV - GI consulted - appreciate input + recs #OP- Alendronate - continue as outpatient, hold inpatient Dispo: Obs, med/tele VTE Prophylaxis: SCDs This document was dictated utilizing eVestment. Please excuse any grammatical errors that may be secondary to use of this software. Admission and Anticipated Discharge Date Admission Date: 01/19/2025 History of Present Illness Chief Complaint: Abdominal pain Primary Care Provider: Tamar Faust DO 54-year-old female PMHx breast cancer in 2009 presenting for abdominal pain over the past few weeks with vomiting the day of arrival. Reports 3-4 weeks of abdominal pain, coming and going in waves every 4-5 days. Reports taht the "episodes" occur at night, sometimes waking her from sleep. The pain worsens over the course of ~ 1.5 hours, then dissipates. She has had nausea, then the first episode of vomiting occurred the night of arrival x 4 times. The first episode of emesis was brown in nature, resembling coffee-grounds. The remaining episodes were clear fluid. No changes in bowel habits, no blood in stool. Pain is described as a dull, burning pain that is band like in the epigastric region. Does not radiate elsewhere. 8/10 at its worst, 0/10 at present. No chest pain, SOB, dizziness, or syncope. Denies palpitations, D/C, F/C, URI symptoms, LUTS, numbness/tingling, weakness, or falls. ED evaluation reveals normal CBC, PT/INR, and CMP with exception of BUN/creatinine ratio 23.8 glucose 128; negative; CTA A/P uncomplicated cholelithiasis, uncomplicated sigmoid colonic diverticulosis, sliding hiatal hernia, normal arteries and aorta, mesenteric panniculitis and mesenteric fat stranding; CXR subtle coarse pulmonary interstitium with few bilateral basal atelectatic bands that are stable, RLL nodule; EKG sinus bradycardia 53 bpm.; Provided with 1L NSS, pantoprazole 80 mg p.o., Zofran 4 mg IV, morphine 4 svitlana IV, 20 mg IV in ED. Please see Dr. Xiong's attestation for adjustments/additions to treatment plan. Allergies Allergy/AdvReac Type Severity Reaction Status Date / Time No Known Allergies Allergy Verified 06/01/24 15:48 Home Medications Medication Instructions Recorded Confirmed Type alendronate 70 mg tablet 70 mg PO WK 01/19/25 01/19/25 History pantoprazole 40 mg tablet,delayed See Rx Instructions .Route 01/19/25 Rx release .COMPLEX #70 tabs Past Med/Surg History Problem List Abdominal pain Mesenteric panniculitis (Acute) Hematemesis (Acute) Surgical History Hx of breast reconstruction S/P mastectomy, bilateral Family History Grandmother (Maternal) No problems noted. Grandmother (Paternal) Breast cancer Colorectal cancer Denies family history of Ovarian cancer Uterine cancer Social History Smoking Status: Never smoker Second Hand Exposure: No; Do You Dip or Chew Tobacco: No; Hx Alcohol Use: Yes Alcohol type: beer, wine and hard liquor Hx Substance Use: No Preferred Language: Kosovan Communication Ability: Effective Driller Multiple Spindle Required: No Beliefs That Will Affect Care: None Current Living Situation: Spouse Current Living Situation Comment: 1 story Feels Safe at Home: Yes Assistive Devices: None Review of Systems Review of Systems: All systems reviewed & are unremarkable except as noted in Subjective Physical Exam Physical Exam: General: No acute distress Skin: Warm and dry Head: Normocephalic, atraumatic Eyes: PERRL, conjunctivae clear, sclera non-icteric ENT: External ear and ear canal without swelling; nose atraumatic; good dentition, tongue normal appearance, pharynx normal Neck: Supple, no LAD Cardio: RRR, no M/G/R, S1 and S2 normal Resp: No respiratory distress, Lungs CTA in all lobes bilaterally, no wheezes, rales, or rhonchi Abdomen: Soft, symmetric, slight epigastric tenderness to palpation; No masses or hepatosplenomegaly; Bowel sounds normoactive MSK: No deformities; pulses palpable and equal; no edema. Neuro: Awake, alert; Sensation intact bilaterally; CN grossly intact Psych: Appropriate mood and affect; good judgement and insight. present in room at time of visit. Results & Data Results & Data Vital Signs (Past 12 Hours) Vital Signs Temp Pulse Resp BP Pulse Ox O2 Del Method 01/19/25 01:12 62 24 169/116 H 99 Room Air 01/19/25 00:45 49 L 15 174/71 H 98 Room Air 01/19/25 00:42 49 L 01/19/25 00:32 98 Room Air 01/19/25 00:13 36.5 C 60 20 139/81 99 Room Air Laboratory Results 01/19/25 01/19/25 01/19/25 00:36 00:30 00:28 WBC 9.04 RBC 5.01 Hgb 14.2 POC Hgb 14.6 Hct 43.2 POC Hct 43 MCV 86.2 MCH 28.3 MCHC 32.9 RDW Std Deviation 42.2 RDW Coeff of Gladys 13.5 Plt Count 344 MPV 10.2 Immature Gran % (Auto) 0.2 Neut % (Auto) 59.3 Lymph % (Auto) 31.0 [place] % (Auto) 5.8 Eos % (Auto) 3.1 Baso % (Auto) 0.6 Neut # (Auto) 5.37 Lymph # (Auto) 2.80 [place] # (Auto) 0.52 Eos # (Auto) 0.28 Baso # (Auto) 0.05 Immature Gran # (Auto) 0.02 PT 10.7 INR 1.0 APTT 26 PTT Ratio 1.0 POC Sodium 140 Sodium 138 POC Potassium 3.8 Potassium 3.8 POC Chloride 101 Chloride 103 Carbon Dioxide 29 POC Total CO2 28 Anion Gap 6 POC Anion Gap 16.0 POC BUN 20 H BUN 19 Creatinine 0.80 POC Creatinine 0.9 Est Cr Clr Drug Dosing 85.8 eGFR 86.96 BUN/Creatinine Ratio 23.8 H Glucose 128 H POC Glucose (other) 125 H Calcium 9.8 POC Ioniz Calcium Brian 1.20 Magnesium 2.1 Total Bilirubin 0.5 AST 17 ALT 21 Alkaline Phosphatase 83 Troponin I High Sens 2.7 Total Protein 7.4 Albumin 4.1 Globulin 3.3 Albumin/Globulin Ratio 1.2 HCG, Qual Negative Blood Type O Positive Antibody Screen NEGATIVE Diagnostic Findings Abdomen/Pelvis CTA 01/19/25 00:31 EXAM: CT angio abdomen pelvis w con CLINICAL HISTORY: severe epi pain, hematemesis TECHNIQUE: Contrast enhanced thin slice CT angiography scan of the abdominal aorta was performed with intravenous contrast. Angiographic images were processed, 3D MIP images were acquired for interpretation. Contiguous axial images were obtained. Reformatted coronal and sagittal images were also reviewed. If IV contrast material had not been administered, the likelihood of detecting abnormalities relevant to the patient's condition would have been substantially decreased. CT scan was performed according to ALARA (as low as reasonably achievable). COMPARISON: None. FINDINGS: Abdominal aorta is normal in course, calibre and opacification. Origin of coeliac artery, superior mesenteric artery , bilateral main renal and lumbar arteries are normal with no hemodynamically significant ostial stenosis noted. Bilateral common, external and internal iliac arteries are normal in course, caliber and opacification. Solid abdominal organs including liver, spleen, pancreas and bilateral kidneys reveal no significant abnormality. Sliding hiatus hernia. Multiple lucent calculi noted involving gallbladder without cholecystitis. Multiple small uncomplicated sigmoid colonic diverticulosis No evidence of ascites. Mesenteric panniculitis in form of root of mesentery - mesenteric fat stranding and few reaactive lymphnodes. IMPRESSION: Uncomplicated cholelithiasis. Multiple small uncomplicated sigmoid colonic diverticulosis Sliding hiatus hernia noted. Abdominal aorta is normal in course, calibre and opacification. Origin of coeliac artery, superior mesenteric artery , bilateral main renal and lumbar arteries are normal with no hemodynamically significant ostial stenosis noted. Mesenteric panniculitis in form of mesenteric fat stranding and few reaactive lymphnodes. Electronically signed by Aubrey Tuttle 01-19-2025 01:50 AM Chest X-Ray 01/19/25 00:31 EXAM: XR chest 1V portable CLINICAL HISTORY: n/v. TECHNIQUE: An X-ray image of the chest is obtained in AP projection. COMPARISON: 01/18/2025 CT. FINDINGS: Pulmonary Parenchyma: The right lower lung lobe nodule is better seen on the lower cut of the CT angiography of the abdominal vessels. Subtle coarse pulmonary interstitium with bilateral basal atelectatic band. No evidence of consolidation, collapse, or focal opacities. No evidence of pleural effusion or pleural thickening. Heart and Mediastinum: Heart size and shape are normal. No mediastinal widening or masses. No hilar or mediastinal lymphadenopathy. Bony Thorax: Bony thorax appears intact without fractures or deformities. ECG leads. Soft Tissues: Soft tissues overlying the chest wall are unremarkable. left and to a lesser extent right few metallic clips, likely of metallic clips of an old intervention versus soft tissue calcification. IMPRESSION: 1. Subtle coarse pulmonary interstitium with a few bilateral basal atelectatic bands, stable. 2. The right lower lung lobe nodule is better seen on the lower cut of the CT angiography of the abdominal vessels. Electronically signed by Irvin Menjivar 01-19-2025 02:21 AM Medications Administered 1L NSS Pantoprazole 80 mg IV Famotidine 20 mg IV Zofran 4 mg IV Morphine mg IV ECG Additional Comments: Sinus bradycardia 53 bpm, FL 138, QRS 70, QT/QTc 450/422, PRT 19/-09/29 Code Status & VTE Plan Code Status Full Supervising Physician Co-Signing Physician Notes Attending addendum: I have physically seen this patient, have supervised the DEBBY's activities, and agree with the H&P unless as otherwise noted. Assessment and Plan: The patient is a 54-year-old female with past medical history including breast cancer in 2009. She presents to the emergency department with abdominal pain with past 2 weeks, with vomiting occurring at day of arrival. CT abdomen pelvis with mesenteric panniculitis. Abdominal pain/mesenteric panniculitis- Symptoms of abdominal pain for 3 to 4 weeks, with vomiting on the Day of arrival. Coffee-ground emesis x 1 Denies any NSAID use The patient will be admitted to telemetry for serial cardiac enzymes, serial EKG's, cardiac rhythm monitoring Fecal occult blood test positive in the emergency department CT of abdomen pelvis with mesenteric panniculitis N.p.o. LR at 80 mL/h x 1 L Acetaminophen 1 g IV every 8 hours as needed for mild pain or fever Pantoprazole 40 mg IV twice daily Famotidine 20 mg IV twice daily Consult gastroenterology PG Care Time/CCT Total # of Minutes Spent Total Time Spent with Patient: Total time spent is greater than 50% in coordination of care (as documented) at patient's floor/unit and/or counseling patient: Coding Level of Care Code 49991 INT INP/OBS CARE 3/75MIN Diagnoses Abdominal pain R10.9 Mesenteric panniculitis K65.4
[2025-01-19] MEDS ORDERED: ACETAMINOPHEN 1,000 MG/100 ML VIAL IV PRN (03:35)
[2025-01-19] MEDS ORDERED: MoRPHine SULFATE 2 MG/ML CARP IV PRN (03:35)
[2025-01-19] MEDS ORDERED: ACETAMINOPHEN 325 MG TAB PO PRN (04:24)
[2025-01-19] MEDS ORDERED: MAGNESIUM HYDROXIDE SUSP 30 ML UDC PO PRN (04:24)
[2025-01-19] MEDS ORDERED: ONDANSETRON INJ 2 MG/ML 2 ML VIAL IV PRN (04:24)
[2025-01-19] MEDS: LACTATED RINGER'S 1,000 ML IV STA (04:33)
[2025-01-19 08:19] LABS: Hematocrit (blood only) 38.1 % (37.0-47.0); Hemoglobin 12.8 g/dL (12.0-16.0)
[2025-01-19 08:41] LABS: Anion Gap 4.0 (3-11); Blood Urea Nitrogen 12.0 mg/dl (6-23); Calcium 8.8 mg/dl (8.6-10.3); Carbon Dioxide 27.0 mmol/L (21-32); Chloride 107.0 mmol/L (98-107); Creatinine Clr Calc Pharmacy 112.5 ml/min; Glucose 108.0 mg/dl (70-99(Fasting)); Potassium 4.1 mmol/L (3.5-5.1); Sodium 138.0 mmol/L (136-145)
[2025-01-19] MEDS: PANTOprazole 40 MG/10 ML SYR IV SCH (08:45)
[2025-01-19] MEDS: FAMOTIDINE 20MG IV PUSH 20 MG/5 ML SYR IV SCH (09:28)
--- NOTE | 2025-01-19 11:42 | Gastrointestinal Consultation ---
Date of Consultation January 19, 2025 Assessment & Plan (1) Hematemesis: Patient with dark brown/red emesis after vomiting. Suspect Kaye Conley tear vs PUD. -Continue IV Protonix IV gtt for now; will likely adjust this pending work-up -Keep NPO for EGD today (2) Mesenteric panniculitis: Unclear if this is related to the patient's reported symptoms. Treat supportively. Supervising Physician Co-Signing Physician Notes I personally saw and examined the patient. I have reviewed the chart and agree with the documentation provided by the RECORDS ANALYST including discussion about the assessment, treatment and plan. Briefly, 54 yo female who reports 4-5 weeks of mid abdominal pain that occurs intermittently. She describes wave-like pain and describes it as a sharp, aching feeling. She notes that she gets nausea with the pain. Yesterday she vomited with the pain several times. She notes that eventually the emesis was dark brown. She has a history of peptic ulcer disease as a child. She has not had other issues with her stomach since that time. No pertinent family history. Rare NSAID use. She does use Alendronate. PPI twice daily for now IV. Plan for EGD today NPO. Suspect Kaye-Conley tear versus esophagitis will rule out PUD History of Present Illness Reason for Consultation: "? UGIB, GERD, panniculitis" Attending Physician: Pasha Richardson History of Present Illness Patient is a 54 yo female who reports 4-5 weeks of mid abdominal pain that occurs intermittently. She describes wave-like pain and describes it as a sharp, aching feeling. She notes that she gets nausea with the pain. Yesterday she vomited with the pain several times. She notes that eventually the emesis was dark brown. She has a history of peptic ulcer disease as a child. She has not had other issues with her stomach since that time. No pertinent family history. Rare NSAID use. She does use Alendronate. She has a PMH of breast cancer. In the ED, H/H 12.8/38.1. BUN/Cr 12/0.61. CTA abdomen/pelvis: IMPRESSION: Uncomplicated cholelithiasis. Multiple small uncomplicated sigmoid colonic diverticulosis Sliding hiatus hernia noted. Abdominal aorta is normal in course, calibre and opacification. Origin of coeliac artery, superior mesenteric artery , bilateral main renal and lumbar arteries are normal with no hemodynamically significant ostial stenosis noted. Mesenteric panniculitis in form of mesenteric fat stranding and few reactive lymph nodes. Allergies Allergy/AdvReac Type Severity Reaction Status Date / Time No Known Allergies Allergy Verified 06/01/24 15:48 Home Medications Medication Instructions Recorded Confirmed Type alendronate 70 mg tablet 70 mg PO WK 01/19/25 01/19/25 History Patient History Surgical History Hx of breast reconstruction S/P mastectomy, bilateral Family History Grandmother (Maternal) No problems noted. Grandmother (Paternal) Breast cancer Colorectal cancer Denies family history of Ovarian cancer Uterine cancer Social History Smoking Status: Never smoker Second Hand Exposure: No; Do You Dip or Chew Tobacco: No; Tobacco Cessation Education Requested by Patient: No Hx Alcohol Use: Yes Alcohol type: beer, wine and hard liquor Hx Substance Use: No Preferred Language: Mohawk Communication Ability: Effective Area Secretary Required: No Beliefs That Will Affect Care: None Current Living Situation: Spouse Current Living Situation Comment: 1 story Other Information That Helps Us Care for You: No Feels Safe at Home: Yes Safety Concerns: Feels Safe At This Time Assistive Devices: Glasses Review of Systems Gastrointestinal: + abdominal pain, + nausea, + vomiting a nd + problem reported (brown emesis) Physical Exam Constitutional: well developed Respiratory: normal respiratory effort Gastrointestinal (Abdomen): normal bowel sounds, soft, nontender, no hepatosplenomegaly Results & Data Vital Signs (Past 12 Hours) Vital Signs Temp Pulse Pulse Resp BP BP Pulse Ox 01/19/25 11:23 36.6 C 60 18 115/76 97 01/19/25 07:47 36.7 C 54 L 18 103/54 L 96 01/19/25 06:45 50 L 01/19/25 04:24 01/19/25 04:10 36.6 C 62 16 116/74 96 01/19/25 04:07 58 L 01/19/25 03:00 65 12 106/69 98 01/19/25 02:30 61 12 106/63 93 01/19/25 02:00 59 L 15 137/69 97 01/19/25 01:30 58 L 12 148/72 H 96 01/19/25 01:12 62 24 169/116 H 99 01/19/25 00:45 49 L 15 174/71 H 98 01/19/25 00:42 49 L 01/19/25 00:32 98 01/19/25 00:13 36.5 C 60 20 139/81 99 Pulse Ox O2 Del Method O2 Del Method 01/19/25 11:23 Room Air 01/19/25 07:47 Room Air 01/19/25 06:45 01/19/25 04:24 96 Room Air 01/19/25 04:10 Room Air 01/19/25 04:07 01/19/25 03:00 Room Air 01/19/25 02:30 Room Air 01/19/25 02:00 Room Air 01/19/25 01:30 Room Air 01/19/25 01:12 Room Air 01/19/25 00:45 Room Air 01/19/25 00:42 01/19/25 00:32 Room Air 01/19/25 00:13 Room Air PG Care Time/CCT Total # of Minutes Spent Total Time Spent with Patient: Total time spent is greater than 50% in coordination of care (as documented) at patient's floor/unit and/or counseling patient: Coding Level of Care Code 55181 IN/OBS CONSULT LVL 4,60M Diagnoses Hematemesis K92.0 Nausea presence: with nausea Mesenteric panniculitis K65.4 (1) Hematemesis Nausea presence: with nausea Qualified Code(s): K92.0 - Hematemesis
--- NOTE | 2025-01-19 14:15 | Anesthesiology Consultation ---
Date of Service January 19, 2025 Assessment & Plan Chart Review Chart Review: Acceptable Risk for Surgery and Patient NOT seen in Pre Admission Testing Consults Requested none History Surgery Operation Date: 01/19/25 16:30 Proposed Procedures p Esophagogastroduodenoscopy Anselmo Briones MD Height/Weight Height: 5 ft 6 in Weight: 82 kg Allergies Allergy/AdvReac Type Severity Reaction Status Date / Time No Known Allergies Allergy Verified 06/01/24 15:48 Medications Home Medications Medication Instructions Recorded Confirmed Last Taken alendronate 70 mg tablet 70 mg PO WK 01/19/25 01/19/25 Unknown Active Medications Generic Name Dose Route Start Last Admin Trade Name Marcoq PRN Reason Stop Dose Admin Lactated Ringer's 1,000 mls @ 80 mls/hr 01/19/25 03:32 01/19/25 04:33 Lr IV 01/19/25 16:01 80 mls/hr .[id number] STA Administration Pantoprazole Sodium 40 mg in 10 mls @ 5 mls/min 01/19/25 09:00 01/19/25 08:45 Protonix IV 02/18/25 08:59 5 mls/min BID SURYA Administration Famotidine 20 mg in 5 mls @ 2.5 mls/min 01/19/25 09:00 01/19/25 09:28 Pepcid 20mg Iv Push IV 02/18/25 08:59 2.5 mls/min Q12H SURYA Administration Past Family History Family History Grandmother (Maternal) No problems noted. Grandmother (Paternal) Breast cancer Colorectal cancer Denies family history of Ovarian cancer Uterine cancer Past Surgical History Surgical History Hx of breast reconstruction S/P mastectomy, bilateral Social History Smoking Status: Never smoker Do You Dip or Chew Tobacco: No Hx Alcohol Use: Yes Alcohol type: beer, wine and hard liquor alcohol intake frequency: a few times a week Hx Substance Use: No substance use type: does not use Physical Exam Vital Signs Last Vital Signs Temp 36.6 C 01/19/25 11:23 Pulse 60 01/19/25 11:23 Resp 18 11/14/25 11:23 BP 115/76 01/19/25 11:23 Pulse Ox 97 01/19/25 11:23 O2 Del Method Room Air 01/19/25 11:23 Testing Laboratory Results 01/19/25 07:56 01/19/25 07:56 PT 10.7 Seconds (9.0-12.0) 01/19/25 00:30 INR 1.0 (0.9-1.1) 01/19/25 00:30 APTT 26 Seconds (21-31) 01/19/25 00:30 Blood Type O Positive 01/19/25 00:28 Antibody Screen NEGATIVE 01/19/25 00:28
[2025-01-19] MEDS ORDERED: SIMETHICONE (ENDO) IR PRN (14:47)
[2025-01-19] MEDS ORDERED: LIDOCAINE 2% 2 ML VIAL/AMP(20MG/ML) INFIL ONE (14:53)
[2025-01-19] MEDS ORDERED: PROPOFOL IV EMULSION 10 MG/ML 20 ML VIAL IV ONE (14:53)
--- NOTE | 2025-01-19 15:08 | GI REPORT ---
[facility] Patient: DEBORAH BUSTOS : 1970 Sex at : Female Age: 54 Years Procedure: Upper GI endoscopy Date: 01/19/2025 Attending Physician: Boogie Briones MD Referring MD: Pasha Richardson M.d. Indications: - Melena Medications: - Monitored Anesthesia Care Complications: - No immediate complications. Estimated Blood Loss: - Estimated blood loss: None. Procedure: - Prior to the procedure, a History and Physical was performed, and patient medications and allergies were reviewed. The patient's tolerance of previous anesthesia was also reviewed. The risks and benefits of the procedure and the sedation options and risks were discussed with the patient. All questions were answered, and informed consent was obtained. Prior Anticoagulants: The patient has taken no anticoagulant or antiplatelet agents. ASA Grade Assessment: II - A patient with mild systemic disease. After reviewing the risks and benefits, the patient was deemed in satisfactory condition to undergo the procedure. - The egd scope was introduced through the mouth and advanced to the third part of the duodenum. - The upper GI endoscopy was accomplished without difficulty. - The patient tolerated the procedure well. Findings: - LA Grade B (one or more mucosal breaks greater than 5 mm, not extending between the tops of two mucosal folds) esophagitis with no bleeding was found at the gastroesophageal junction (on retroflexion). - A less than 1 mm non-bleeding Kaye-Conley tear with stigmata of recent bleeding was found. - Localized and patchy moderate inflammation characterized by erythema was found in the gastric body and in the gastric antrum. Biopsies were taken with a cold forceps for histology. - The examined duodenum was normal. Impression: - LA Grade B reflux esophagitis with no bleeding. - Kaye-Conley tear. - Acute gastritis, characterized by erythema. Biopsied. - Normal examined duodenum. Recommendation: - Discharge patient to home (ambulatory). - Resume previous diet. - Continue present medications. - Await pathology results. - Return to primary care physician as previously scheduled. - Patient has a contact number available for emergencies. The signs and symptoms of potential delayed complications were discussed with the patient. Return to normal activities tomorrow. Written discharge instructions were provided to the patient. - PPI twice daily for 1 week and then once daily for 8 weeks. Procedure Code(s): - 81125, Esophagogastroduodenoscopy, flexible, transoral; with biopsy, single or multiple Diagnosis Code(s): - K92.1, Melena (includes Hematochezia) - K21.00, Gastro-esophageal reflux disease with esophagitis, without bleeding - K22.6, Gastro-esophageal laceration-hemorrhage syndrome - K29.00, Acute gastritis without bleeding CPT(R) - 202 copyright [employer]. All Rights Reserved. The CPT codes, CCI edits and ICD codes generated are intended as suggestions and were generated based on input data. These codes are preliminary and upon chemical dependency professional review may be revised to meet current compliance and payer requirements. The provider is responsible for the final determination of appropriate codes, and modifiers. Boogie Briones MD This document has been electronically signed. Note Initiated:01/19/2025 Note Completed:01/19/2025 3:07 PM \\[email or web address]\Central\InterfaceData\Data\Provation\Results\LIVE\[id number]
[2025-01-19 15:43] VITALS: RESP 18
--- NOTE | 2025-01-19 15:53 | Anesthesiology Progress Note ---
Date of Service January 19, 2025 Anesthesia Post Procedure Vital Signs Vital Signs: Temp Pulse Pulse Resp BP BP Pulse Ox 01/19/25 15:38 97.7 F 54 L 18 114/75 98 01/19/25 15:33 50 L 16 113/56 L 96 01/19/25 15:21 51 L 16 121/44 L 99 01/19/25 15:07 57 L 14 98/66 L 96 01/19/25 14:16 98.1 F 52 L 16 117/60 95 01/19/25 13:00 52 L 01/19/25 11:23 97.9 F 60 18 115/76 97 01/19/25 07:47 98.1 F 54 L 18 103/54 L 96 01/19/25 06:45 50 L 01/19/25 04:24 01/19/25 04:10 97.9 F 62 16 116/74 96 01/19/25 04:07 58 L 01/19/25 03:00 65 12 106/69 98 01/19/25 02:30 61 12 106/63 93 01/19/25 02:00 59 L 15 137/69 97 01/19/25 01:30 58 L 12 148/72 H 96 01/19/25 01:12 62 24 169/116 H 99 01/19/25 00:45 49 L 15 174/71 H 98 01/19/25 00:42 49 L 01/19/25 00:32 98 01/19/25 00:13 97.7 F 60 20 139/81 99 Pulse Ox O2 Del Method O2 Del Method 01/19/25 15:38 Room Air 01/19/25 15:33 Room Air 01/19/25 15:21 Room Air 01/19/25 15:07 Room Air 01/19/25 14:16 Room Air 01/19/25 13:00 01/19/25 11:23 Room Air 01/19/25 07:47 Room Air 01/19/25 06:45 01/19/25 04:24 96 Room Air 01/19/25 04:10 Room Air 01/19/25 04:07 01/19/25 03:00 Room Air 01/19/25 02:30 Room Air 01/19/25 02:00 Room Air 01/19/25 01:30 Room Air 01/19/25 01:12 Room Air 01/19/25 00:45 Room Air 01/19/25 00:42 01/19/25 00:32 Room Air 01/19/25 00:13 Room Air Pain Intensity Abdomen: Pain Intensity: 8 Transfer of Care Handoff Completed per policy Notes Mental Status: alert / awake / arousable and participated in evaluation Patient Amnestic to Procedure: Yes Nausea / Vomiting: adequately controlled Pain: adequately controlled Airway Patency, RR, SpO2: stable & adequate BP & HR: stable & adequate Hydration State: stable & adequate Anesthetic Complications: no major complications apparent and Pt Satisfied with anesthetic care
--- NOTE | 2025-01-19 16:14 | Discharge Summary ---
Discharge Summary Date of Service January 19, 2025 Principal Dx & Hospital Course #1 = Principal Diagnosis (1) Abdominal pain: (2) Mesenteric panniculitis: Plan 54-year-old female PMHx breast cancer in 2009 presenting for abdominal pain over the past few weeks with vomiting the day of arrival. Her evaluation is overall unremarkable with slightly increased BUN/creatinine versus 23.8 and glucose 128. CTA A/P revealing mesenteric panniculitis but no acute findings otherwise. #Abdominal pain/Mesenteric panniculitis/R/o GI bleed Abdominal pain for 3-4 weeks, vomiting day of arrival, coffee-ground emesis x 1. Increased stress surrounding her job around the same time her abdominal pain started. No NSAIDs, no prior episodes. Concerning for acid reflux with ? acute bleeding, however stable H/H, normal BUN. Panniculitis possibly secondary to vomiting, ? recent viral illness, should continue to monitor as appropriate. Admission for further management of pain and to evaluate source of symptoms. - CBC stable H&H and overall WNL; PT WNL; CMP normal BUN, BUN/creatinine ratio 20.8 - Occult blood test (+) in ED - CTA A/P mesenteric panniculitis otherwise chronic and stable findings (see report) - LA Grade B reflux esophagitis with no bleeding. - Kaye-Conley tear. - Acute gastritis, characterized by erythema. Biopsied. - Normal examined duodenum -will discharge on PPI BID for 1 week and daily for 8 weeks. - GI consulted - appreciate input + recs #OP- Alendronate - continue as outpatient Admission HPI Per Admitting Provider 54-year-old female PMHx breast cancer in 2009 presenting for abdominal pain over the past few weeks with vomiting the day of arrival. Reports 3-4 weeks of abdominal pain, coming and going in waves every 4-5 days. Reports taht the "episodes" occur at night, sometimes waking her from sleep. The pain worsens over the course of ~ 1.5 hours, then dissipates. She has had nausea, then the first episode of vomiting occurred the night of arrival x 4 times. The first episode of emesis was brown in nature, resembling coffee-grounds. The remaining episodes were clear fluid. No changes in bowel habits, no blood in stool. Pain is described as a dull, burning pain that is band like in the epigastric region. Does not radiate elsewhere. 8/10 at its worst, 0/10 at present. No chest pain, SOB, dizziness, or syncope. Denies palpitations, D/C, F/C, URI symptoms, LUTS, numbness/tingling, weakness, or falls. ED evaluation reveals normal CBC, PT/INR, and CMP with exception of BUN/creatinine ratio 23.8 glucose 128; negative; CTA A/P uncomplicated cholelithiasis, uncomplicated sigmoid colonic diverticulosis, sliding hiatal hernia, normal arteries and aorta, mesenteric panniculitis and mesenteric fat stranding; CXR subtle coarse pulmonary interstitium with few bilateral basal atelectatic bands that are stable, RLL nodule; EKG sinus bradycardia 53 bpm.; Provided with 1L NSS, pantoprazole 80 mg p.o., Zofran 4 mg IV, morphine 4 svitlana IV, 20 mg IV in ED. Discharge Exam Constitutional WD/WN, vitals as above Neck trachea midline, no thyromegaly Respiratory normal respiratory effort, lungs clear to auscultation Cardiovascular RRR, no murmur, no edema Discharge Plan Discharge Items Patient Disposition: Home - Self-Care Reason For Visit: ? UGIB, ABDOMINAL PAIN Discharge Diagnosis: abdominal pain Condition on Discharge: Fair Activity: Resume your previous activity Non-emergency contact: Primary Care Provider Call non-emergency contact if: you have any medication questions Follow-up/Referrals: Tamar Faust DO [Primary Care Provider] - Diet: Regular Addtl Attending Provider Instructions: - Resume previous diet. - Continue present medications. - Followup with PCP in 1-2 weeks Return to normal activities tomorrow. - Pantoprazole twice daily for 1 week and then once daily for 8 weeks. Pending Studies at Discharge: No Stand-Alone Forms: [facility] [employer], Smoking Cessation Medications and DC Order Prescriptions: New pantoprazole 40 mg tablet,delayed release (DR/EC) See Rx Instructions .ROUTE .COMPLEX Qty: 70 0RF Rx Instructions: 40 mg orally twice daily for 1 week. Then once a day for 8 weeks. Continued alendronate 70 mg tablet 70 mg PO WK Discharge Orders: Discharge Order (Routine); Ordered 01/19/25 Ordered By: Pasha Richardson Admission Data Admit Date/Time: 01/19/25 03:10 Attending Provider: Pasha Richardson Admit Provider: Alistair Xiong Primary Care Provider: Tamar Faust Other Providers: Boogie Briones; Alistair Xiong Other Interventions: Discharge Summary Assessment (RN) Last Done: 01/19/25 18:03 Hospital Stay Data Consultations 01/19/25 02:11 ED Decision to Admit Stat 01/19/25 04:24 Consult Gastroenterology Routine Procedures Performed Operation Date: 01/19/25 16:30 Actual Procedures p EGD Biopsy Cytology - Boogie Briones MD Diagnostic Imagining Performed 01/19/25 00:31 CT angio abdomen pelvis w con Stat Pending Results Patient Have Any Pending Studies at Discharge: No Discharge Instructions Given to Patient (Per Discharging Provider) - Resume previous diet. - Continue present medications. - Followup with PCP in 1-2 weeks Return to normal activities tomorrow. - Pantoprazole twice daily for 1 week and then once daily for 8 weeks. Total Time Total Time Spent Total Time Spent (In Minutes): 32 Spent over 30 minutes formulating discharge instructions, discussing with specialists, evaluating patient and answering his questions Coding Level of Care Code 47343 INP/OBS DISCH >30 MIN Diagnoses Abdominal pain R10.9 Mesenteric panniculitis K65.4
[2025-01-19 18:33] VITALS: BP 119/70; PULSE 55; TEMP 98.2; O2SAT 97
--- NOTE | 2025-01-20 07:59 | Electrocardiogram Report ---
Test Reason : Blood Pressure : */* mmHG Vent. Rate : 53 BPM Atrial Rate : 53 BPM P-R Int : 138 ms QRS Dur : 78 ms QT Int : 450 ms P-R-T Axes : 19 -7 25 degrees QTcB Int : 422 ms Sinus bradycardia Nonspecific T wave abnormality Anterior leads Borderline ECG No previous ECGs available Confirmed by Bradley Murphy ([id number]) on 01/20/2025 7:59:47 AM Referred By: REFERRED SELF Confirmed By: Bradley Murphy
== END 2025-01-19 18:34 | disposition home or self-care (01) ==
LOC: ED 00:03 → 2N 00:03 → SUATTDRO 03:10 → 2N 03:51